=== PATIENT | female | born 1970 | race Hispanic/Latino ===

== ENCOUNTER 2019-12-27 20:45 | Emergency (ER) | payer OTHER, BC, SELFPAY ==
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
[2019-12-27 20:56] VITALS: BP 156/98; PULSE 78; RESP 16; TEMP 37.5; O2SAT 100
[2019-12-27 21:29] VITALS: BP 142/64; PULSE 80; RESP 20; O2SAT 100
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
[2019-12-27] MEDS: methocarbamoL 750 MG TABLET PO (23:45)
[2019-12-27] MEDS: KETOROLAC (*BKC) 60 MG/2 ML VIAL IM (23:45)
== END 2019-12-28 00:55 | disposition home or self-care (01) ==
PROVIDERS: Emergency Provider Emergency Medicine
DX: S16.1XXA Strain of muscle, fascia and tendon at neck level, initial encounter (principal); S39.012A Strain of muscle, fascia and tendon of lower back, initial encounter; S29.012A Strain of muscle and tendon of back wall of thorax, initial encounter; E11.9 Type 2 diabetes mellitus without complications; I10 Essential (primary) hypertension; Z85.3 Personal history of malignant neoplasm of breast; Z90.10 Acquired absence of unspecified breast and nipple; V43.62XA Car passenger injured in collision with other type car in traffic accident, initial encounter
CPT/HCPCS: 72125; 72128; 72131; 96372; 99284; A9270; J1885; L0140

== ENCOUNTER 2022-11-08 13:21 | Inpatient (IN) | payer BC, SELFPAY ==
[2022-11-08] VITALS (32 sets, daily range): BP systolic 106–142; BP diastolic 32–51; PULSE 39–91; RESP 14–28; TEMP 36.3–36.9; O2SAT 90–100; BMI 29.9
--- NOTE | ~2022-11-08 | NM_ITS ---
EXAMINATION: NM stress w perf spect multi DATE: 11/11/2022 09:20 INDICATION: Abnormal electrocardiogram. Ischemic changes on electrocardiogram. Bradycardia. TECHNIQUE: Rest images were obtained following intravenous administration of 10.6 mCi Tc99m tetrofosm in (Myoview). Data was reconstructed into short axis and horizontal and vertical long axis SPECT imag es. Gated SPECT images were also obtained. The exam was ended after the rest imaging by the cardiolog ist. COMPARISON: None. FINDINGS: There is no perfusion defect in the left ventricle to suggest infarct. IMPRESSION: 1. No perfusion defect in the left ventricle to suggest infarct. 2. The exam was ended after the rest imaging by the tree and shrub worker. No stress imaging was performed. Reviewed, dictated and finalized at location A. OR WEB ARCHITECT IMPRESSION: 1. No perfusion defect in the left ventricle to suggest infarct. 2. The exam was ended after the rest imaging by the tree and shrub worker. No stress kaycee ging was performed.
--- NOTE | ~2022-11-08 | XR_ITS ---
EXAMINATION: XR chest 1V portable DATE: 11/09/2022 10:17 INDICATION: Central line placement. TECHNIQUE: A single frontal view of the chest was obtained. COMPARISON: Chest single view 11/08/2022 FINDINGS: There is mild atelectasis in the lower lung zones. No pleural effusion or pneumothorax. The heart size is normal. A right upper extremity peripherally inserted central venous catheter (PICC) i s seen with tip in the superior vena cava. There are surgical clips overlying the breasts. IMPRESSION: 1. PICC tip in superior vena cava. 2. Mild atelectasis in the lower lung zones. Reviewed, dictated and finalized at location A. PPER MACHINE OPERATOR
--- NOTE | ~2022-11-08 | XR_ITS ---
EXAMINATION: XR chest 1V portable Exam Date/Time: 11/08/2022 16:58 VIDEO SYSTEMS ENGINEER HISTORY: sob, vomiting, heart palpitations since thursday Comparison: None available. RESULT: Lines, tubes, and devices: None. Lungs and pleura: Nodular opacity in the retrocardiac lung. Streaky bibasilar opacities. Cardiomediastinal silhouette: Unremarkable. Other: No acute osseous or upper abdominal finding. IMPRESSION: Pulmonary nodule versus artifact. Presumed bibasilar atelectasis. Recommend PA and lateral views of t he chest if the patient is capable. Reviewed, dictated and finalized at location K. O SYSTEMS ENGINEER IMPRESSION: Pulmonary nodule versus artifact. Presumed bibasilar atelectasis. Recommend PA and lateral views of the chest if the patient is capable.
--- NOTE | 2022-11-08 13:37 | ECG_ITS ---
Measurements Intervals [place] Rate: 59 P: CO: 0 QRS: 51 QRSD: 102 T: 9 QT: 399 QTc: 397 Interpretive Statements JUNCTIONAL BRADYCARDIA ST DEVIATION AND MODERATE T-WAVE ABNORMALITY, CONSIDER INFERIOR AND LATERAL ISCHEMIA [-0.1+ mV T WAVE IN I/aVL/V5/V6] NO PREVIOUS ECG AVAILABLE FOR COMPARISON Electronically Signed On 11-09-2022 8:22:15 SINGLE STROKE PREFORMER by Ananda Villela M.D.
[2022-11-08 13:52] LABS: Basophils Absolute Auto 0.1 K/mm3 (0.0-0.1); Basophils Percent Auto 0.4 % (0.2-1.2); Eosinophils Absolute Auto 0.1 K/mm3 (0-0.3); Eosinophils Percent Auto 0.3 % (0-4.4); Hematocrit 40.6 % (37.0-47.0); Hemoglobin 13.6 g/dL (12.0-15.0); Immature Granulocyte Absolute 0.09 K/mm3 (0.00-0.031); Immature Granulocyte Percent A 0.6 % (0-0.5); Lymphocytes Absolute Auto 1.43 K/mm3 (0.9-3.2); Lymphocytes Percent Auto 9.6 % (18.3-44.2); Mean Corpuscular HGB Conc 33.5 g/dl (32-36); Mean Corpuscular Hemoglobin 28.8 pg (26-34); Mean Corpuscular Volume 85.8 fl (80-100); Mean Platelet Volume 10.1 fl (7.4-10.4); Monocytes Absolute Auto 0.4 K/mm3 (0.1-0.6); Monocytes Percent Auto 2.8 % (2.6-8.5); Neutrophils Absolute Auto 12.9 K/mm3 (1.3-6.7); Neutrophils Percent Auto 86.3 % (45.5-73.1); Platelet Count Result 236 k/mm3 (150-375); Red Blood Count 4.73 M/mm3 (4.2-5.4); White Blood Count 14.9 K/mm3 (4.5-10.0)
[2022-11-08 14:04] LABS: Add Urine Microscopic? YES; Appearance Urine Clear (Clear); Bilirubin Urine 1+ (Negative); Blood Urine Negative (Negative); Color Urine Yellow (Yellow); Glucose Urine UA 2+ mg/dL (Negative); Ketones Urine Trace mg/dL (Negative); Leukocyte Esterase Ur Negative LEU/UL (Negative); Nitrate Urine Negative (Negative); Protein Urine 2+ mg/dL (Negative); Specific Grav Ur 1.025 (1.001-1.035)
[2022-11-08 14:09] LABS: Alanine Aminotransferase 76 U/L (6-35); Albumin Level 5.1 g/dL (3.5-5.1); Alkaline Phosphatase 161 U/L (38-126); Anion Gap 13 mmol/L (8-16); Aspartate Amino Transferase 69 U/L (14-36); Bilirubin,Total 1.3 mg/dL (0.2-1.3); Blood Urea Nitrogen 18 mg/dL (7-17); Carbon Dioxide 23 mmol/L (22-30); Chloride 102 mmol/L (98-107); Estimated CRCL calculation 101 ml/min; Estimated Glomerular Filt Rate > 60; Glucose 304 mg/dL (65-110); Lipase 110 U/L (23-300); Potassium 4.6 mmol/L (3.4-5.0); Sodium 138 mmol/L (137-145)
[2022-11-08 14:23] LABS: Mucus Urine Rare /lpf; RBC Urine 0-2 /hpf (0-2); Squamous Epithelial Cell Urine Few /hpf (Few); WBC Urine 0-3 /hpf
--- NOTE | 2022-11-08 14:25 | PC.NURSE ---
notified lab of tropin level added on
--- NOTE | 2022-11-08 14:28 | ED.GENADULT ---
HPI - General Adult General Chief complaint: Nausea/Vomiting/Diarrhea Stated complaint: vomiting Time Seen by Provider: 11/08/22 14:01 History of Present Illness HPI narrative: 52-year-old female history of hypertension diabetes breast cancer presents to the emergency room for sudden onset of substernal chest pain and palpitations since this morning when she woke up. States that chest pain has been constant and does not radiate. Associated with nausea and vomiting. States pain is not alleviated or aggravated by any factors. Patient denies any associated shortness of breath difficulty breathing. Denies dizziness or lightheadedness. Reports, feeling my heart is going to pound out of my chest. No history of similar symptoms. Related Data Allergies Allergy/AdvReac Type Severity Reaction Status Date / Time No Known Allergies Allergy Verified 11/08/22 14:48 Review of Systems Review of Systems: CONSTITUTIONAL: Denies fever, chills, or sweats. EYES: Denies visual changes, redness, or discharge. ENT: Denies rhinorrhea, congestion, sore throat, or otalgia. CARDIOVASCULAR: Reports chest pain and palpitations RESPIRATORY: Denies cough or dyspnea. GASTROINTESTINAL: Denies abdominal pain, nausea, vomiting, or diarrhea. GENITOURINARY: Denies dysuria or hematuria. SKIN: Denies rash or itching. MUSCULOSKELETAL: Denies back pain, joint pain, or myalgia. NEUROLOGIC: Denies headache, numbness, dizziness, or weakness. PSYCHIATRIC: Denies anxiety or depression. Exam Narrative: GENERAL: Well-appearing, well-nourished, no physical limitations, and in no acute distress. HEAD: Normocephalic, atraumatic. EYES: Conjunctivae normal, PERRLA and EOMI. NECK: Supple. CHEST: Clear to auscultation. No respiratory distress. No wheezes rales or rhonchi. HEART: Bradycardic regular rhythm. No murmur heard. Normal peripheral pulses. ABDOMEN: Soft, nontender, nondistended, normal active bowel sounds. EXTREMITIES: Normal range of motion. No edema. No clubbing or cyanosis SKIN: Warm, dry, no rash. No noted wounds NEURO: No focal deficits. Alert and oriented x3. MAEW. CN's II-XI intact bilaterally, normal gait PSYCH: Cooperative. Anxious Course Course Emergency Course: 1529: Consulted with Dr. Villela. He recommends patient being admitted to the IMU. Vital Signs Vital signs: Vital Signs Temperature 36.4 C L 11/08/22 13:34 Pulse Rate 51 L 11/08/22 13:34 Respiratory Rate 18 11/08/22 13:34 Blood Pressure 138/43 L 11/08/22 13:34 Pulse Oximetry 100 11/08/22 13:34 Oxygen Delivery Room Air 11/08/22 13:34 Temperature 36.7 C 11/08/22 14:23 Pulse Rate 50 L 11/08/22 16:05 Respiratory Rate 16 11/08/22 15:38 Blood Pressure 106/32 L 11/08/22 16:05 Pulse Oximetry 95 11/08/22 15:38 Oxygen Delivery Nasal Cannula 11/08/22 14:30 Oxygen Flow Rate 2 11/08/22 14:30 Medical Decision Making MDM Narrative Medical decision making narrative: 52-year-old female history of hypertension dyslipidemia and breast cancer presented to the emergency room for evaluation of chest pain and palpitations. EKG shows ST deviation and moderate T wave abnormality, with bradycardia and the rate 30 to 40 bpm. There is some ST depression in the lateral and inferior leads. Single troponin was negative, delta troponin is pending. Presentation is not consistent with acute PE the D-dimer was negative well score was 0. Will admit patient due to symptomatic bradycardia. 0.4 mg of atropine was given. Blood pressures remained stable 120/60, patient was alert and oriented x3. Consulted with cardiology. Patient will be admitted to the IMU Vital Signs Vital Signs: Vital Signs Temperature 36.4 C L 11/08/22 13:34 Pulse Rate 51 L 11/08/22 13:34 Respiratory Rate 18 11/08/22 13:34 Blood Pressure 138/43 L 11/08/22 13:34 Pulse Oximetry 100 11/08/22 13:34 Oxygen Delivery Room Air 11/08/22 13:34 Temperature 36.7 C 11/08/22 14:23 Pul
[2022-11-08] MEDS: SODIUM CHLORIDE 0.9% IV 1,000 ML 999 ML IV CONT (14:45)
[2022-11-08] MEDS: ONDANSETRON INJ 4 MG/2 ML VIAL IV PUSH ×3 (14:46→23:02)
[2022-11-08 14:47] LABS: Troponin I < 0.012 ng/mL (0.000-0.034)
[2022-11-08 15:00] LABS: D Dimer 0.33 ug/mL (<0.48)
[2022-11-08] MEDS: ATROPINE SULFATE 1 MG/ML VIAL 0.4 MG IV PUSH (15:27)
--- NOTE | 2022-11-08 15:37 | PC.NURSE ---
patient received 0.4mg atropine for HR in 30s.
[2022-11-08 16:18] LABS: Influenza A QL RT-PCR Negative (Negative); Influenza B QL RT-PCR Negative (Negative); SARS-CoV-2 RNA PCR Negative
--- NOTE | 2022-11-08 16:33 | PC.NURSE ---
reg diet food tray ordered
--- NOTE | 2022-11-08 16:43 | PC.NURSE ---
Addendum entered by Izzy Enriquez RN 11/08/22 16:46: correction: patient c/o teeth and gum pain. denies jaw pain at this time Original Note: patient c/o teeth and jaw pain at this time. Provider aware.
[2022-11-08 17:16] LABS: Troponin I < 0.012 ng/mL (0.000-0.034)
--- NOTE | 2022-11-08 17:24 | PM.IMHP ---
H&P: HPI History of Present Illness Date/Time: 11/08/22 17:24 Chief Complaint: Nausea vomiting diarrhea Narrative: This is a 52-year-old female patient who stated that she felt horrible this morning. She has a history of hypertension and breast cancer. The patient came to the emergency room with some substernal chest pain and palpitations since this morning when she woke up. The chest pain was constant and but did not radiate. She also had nausea and vomiting. She felt like her heart was going to lb out of her chest. Her EKG was showing supraventricular bradycardia ST deviation and moderate T-wave abnormality. Consider lateral ischemia. No previous EKG to compare with. Chest x-ray was read as pulmonary nodule versus artifact presume bibasilar atelectasis recommend PA and lateral views of the chest if patient is capable. Patient's heart rate would drop down in the 40s and 50s and sometimes in the 30s. Patient was awake and talking to me at the time. She stated that she was feeling so much better. The patient was given IV fluids, Zofran and atropine in the emergency room. Once the patient was received in IMU she was complaining of dizziness so I gave her another atropine. Cardiology has been consulted. She is on a beta-yuliya. The patient was initially admitted to inpatient and then changed to observation. Review of Systems Review of Systems: See HPI All systems reviewed & are unremarkable except as noted in HPI and below Constitutional: Constitutional: Reports as per HPI and Reports no additional constitutional complaints Eyes: Eyes: Reports as per HPI and Reports no additional eye complaints ENT: Reports system reviewed and no additional complaints, except as documented and Reports Normal hearing present Cardiovascular: Cardiovascular: Reports no additional cardiovascular complaints Respiratory: Respiratory: Reports no additional respiratory complaints and Reports no additional respiratory complaints Gastrointestinal: Gastrointestinal: Reports as per HPI and Reports no additional gastrointestinal complaints Musculoskeletal: Musculoskeletal: Reports no additional musculoskeletal complaints Integumentary/Breasts: Skin/Breast: Reports system reviewed and no additional complaints, except as docu and Reports as per HPI Neurologic: Reports system reviewed and no additional complaints, except as documented, Reports as per HPI and Reports Normal hearing present Psychiatric: Psychiatric: Reports no additional psychiatric complaints and Reports as per HPI Endocrine: Endocrine: Reports no additional endocrine complaints Hematologic/Lymphatic: Hematologic/Lymphatic: Reports no additional hematologic/lymphatic complaints Allergic/Immunologic: Allergic/Immunologic: Reports no additional allergic/immunologic complaints [facility] Past Medical History Medical History (Updated 11/08/22 @ 19:21 by Micaela Amato NP) DM2 (diabetes mellitus, type 2) History of breast cancer HTN (hypertension) with goal to be determined Hyperlipidemia Surgical History Surgical History H/O section H/O hernia repair H/O lumpectomy Hx laparoscopic cholecystectomy Family History Family History Father Hypertension Mother Diabetes mellitus Hypertension Sibling Diabetes mellitus Hypertension Breast cancer Grandparent Breast cancer Social History Social History (Updated 11/08/22 @ 19:15 by Micaela Amato NP) Social History: She lives with her and has 2 children. 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 She is a former smoker. She does not use any alcohol marijuana or illicit drugs. Her is a durable power state attorney for healthcare. Code status full code Smoking status: Former smoker Alcohol intake: current Drinks per week: 1 Substance use: never Lack of Transportation: No Lack of Food: Never True Cu
[2022-11-08 18:04] LABS: Glucose Point of Care 288 mg/dl (65-105)
--- NOTE | 2022-11-08 18:09 | ADMGEN ---
This patient, Daniela Cline, was admitted to IMU Room 202- at 1754. Patient/family oriented to hospital policies and general routines including ID bracelet, bed and alarms, visiting hours, pain management, procedures, bathroom and other care routines, personal items, smoking policy, room service/diet, and visiting hours. Information on how to activate the Rapid Response Team has been discussed. Patient/Family are encouraged to report perceived risks to care and to ask questions if they do not understand what they are told or what they should do.
[2022-11-08] MEDS: SODIUM CHLORIDE 0.9% IV 1,000 ML 125 ML IV CONT (18:38)
[2022-11-08] MEDS: DOPamine 400 MG/D5W 250 ML 400 MG/250 ML BAG 7.88 MG IV CONT (19:30)
--- NOTE | 2022-11-08 19:41 | PC.NURSE ---
After arriving to the floor and being hooked up to our telemetry machine, the patient's heart rate was noted to be in the 40s and 50s. The patient verbalized that she felt better since she got medication in the ER. This RN began the admission process with the patient's in attendance, but I asked the community relations manager to notify me if the patient's heart rate dropped any further. A short time later, the patient began complaining of nausea. An emesis bag was retrieved and zofran IV was given. The patient verbalized that she was feeling slightly better. We continued briefly with the admission and the patient began complaining of nausea and lightheadedness. At this time the community relations manager notified me the patient had momentarily dropped her heart rate into the 30s. This RN notified the hospitalist, and alerted floor RNs and food products sales representative of situation that was evolving that requires urgent attention. Micaela Amato PASTEURIZING SUPERVISOR ordered another ampule of Atropine, which was given. Patient then verbalized relief from symptoms. In the subsequent hour Micaela has been in regular communication with the nursing staff and Dr. Villela was notified. A dopamine drip has been started at 2.5mcg/kg/hr and patient has pacing pads in place. Oncoming RN updated on condition and floor staff alerted to evolving situation.
[2022-11-08 19:45] LABS: Hemoglobin A1C 7.3 % (<5.7)
[2022-11-08 20:35] LABS: Glucose Point of Care 252 mg/dl (65-105)
[2022-11-08] MEDS: INSULIN GLARGINE (*BKC) 100 UNITS/ML 65 UNITS SUB-Q (20:39)
[2022-11-08 22:26] LABS: Troponin I < 0.012 ng/mL (0.000-0.034)
[2022-11-09] VITALS (13 sets, daily range): BP systolic 119–140; BP diastolic 45–60; PULSE 41–74; RESP 16–24; TEMP 36.1–36.6; O2SAT 98–100
[2022-11-09] MEDS: SODIUM CHLORIDE 0.9% IV 1,000 ML 125 ML IV CONT ×3 (02:17→20:48)
[2022-11-09] MEDS: ONDANSETRON INJ 4 MG/2 ML VIAL IV PUSH ×3 (03:31→17:21)
[2022-11-09 04:48] LABS: Basophils Percent Auto 0.3 % (0.2-1.2); Eosinophils Percent Auto 0.1 % (0-4.4); Hematocrit 36.4 % (37.0-47.0); Hemoglobin 12.3 g/dL (12.0-15.0); Immature Granulocyte Absolute 0.06 K/mm3 (0.00-0.031); Immature Granulocyte Percent A 0.5 % (0-0.5); Lymphocytes Absolute Auto 1.55 K/mm3 (0.9-3.2); Lymphocytes Percent Auto 13.4 % (18.3-44.2); Mean Corpuscular HGB Conc 33.8 g/dl (32-36); Mean Corpuscular Hemoglobin 28.7 pg (26-34); Mean Platelet Volume 10.5 fl (7.4-10.4); Monocytes Absolute Auto 0.6 K/mm3 (0.1-0.6); Monocytes Percent Auto 4.9 % (2.6-8.5); Neutrophils Absolute Auto 9.3 K/mm3 (1.3-6.7); Neutrophils Percent Auto 80.8 % (45.5-73.1); Platelet Count Result 204 k/mm3 (150-375); Red Blood Count 4.28 M/mm3 (4.2-5.4); Red Cell Distribution Width 13.2 % (11.5-14.5); White Blood Count 11.5 K/mm3 (4.5-10.0)
[2022-11-09 04:59] LABS: Lactic Acid Reflex 1.7 mmol/L (0.7-2.0)
[2022-11-09 05:08] LABS: Alanine Aminotransferase 60 U/L (6-35); Albumin Level 4.6 g/dL (3.5-5.1); Alkaline Phosphatase 110 U/L (38-126); Anion Gap 9 mmol/L (8-16); Aspartate Amino Transferase 38 U/L (14-36); Blood Urea Nitrogen 15 mg/dL (7-17); Calcium 9.1 mg/dL (8.4-10.2); Carbon Dioxide 26 mmol/L (22-30); Chloride 104 mmol/L (98-107); Estimated CRCL calculation 102 ml/min; Estimated Glomerular Filt Rate > 60; Glucose 211 mg/dL (65-110); Potassium 3.7 mmol/L (3.4-5.0); Sodium 139 mmol/L (137-145)
[2022-11-09 05:50] LABS: Thyroid Stimulating Hormone Reflex 0.316 uIU/mL (0.465-4.68)
[2022-11-09 06:22] LABS: Free T4 Free Thyroxine Reflex 1.03 ng/dL (0.78-2.19)
[2022-11-09 08:22] LABS: Glucose Point of Care 182 mg/dl (65-105)
[2022-11-09] MEDS: LETROZOLE (*CHEMO) 2.5 MG TABLET PO (08:31)
[2022-11-09] MEDS: glipiZIDE 5 MG TABLET 10 MG PO ×2 (08:31→17:21)
[2022-11-09] MEDS: ENOXAPARIN 40 MG/0.4 ML SYRINGE SUB-Q (10:52)
[2022-11-09] MEDS: MORPHINE SULFATE (*CRX) 2 MG/ML INJ IV PUSH (10:52)
[2022-11-09 12:25] LABS: Total Triiodothyronine (T3) 1.03 NG/ML (0.97-1.69)
[2022-11-09 12:28] LABS: Glucose Point of Care 171 mg/dl (65-105)
--- NOTE | 2022-11-09 12:28 | ECG_ITS ---
Measurements Intervals [place] Rate: 68 P: 57 CO: 179 QRS: 8 QRSD: 110 T: 31 QT: 363 QTc: 388 Interpretive Statements SINUS RHYTHM NONSPECIFIC ST & T-WAVE ABNORMALITY COMPARED TO ECG 11/08/2022 13:40:55 SINUS RHYTHM REPLACES JUNCTIONAL RHYTHM Electronically Signed On 11-10-2022 6:17:38 MANAGER IN HOME by Ananda Villela M.D.
--- NOTE | 2022-11-09 12:51 | PM.CNCAR ---
Assessment and Plan Assessment and plan (1) Junctional escape rhythm: Code(s): I49.49 - Other premature depolarization Status: Acute Plan This is a 52-year-old female with a background of hypertension and diabetes. She presents to the hospital with a history that is somewhat unusual she describes episodes of feeling very weak and the sense of tachycardia. Specifically no significant chest pain. Her presenting EKG did not demonstrate tachycardia but rather slow junctional bradycardia and now she is in sinus rhythm. When she was in the slow junctional rhythm she also had a somewhat ischemic looking electrocardiogram with ST segment depression. There has not been a follow-up ECG collected and I ordered 1 for today. She also on physical exam has a murmur of aortic valve stenosis which at least by physical and the exam does not sound severe to me. Obviously he she has risk for ischemic heart disease given diabetes and hypertension. I am going to start out by ordering an echocardiogram to fully evaluate her aortic valve pathology. After that we will determine further course of action she will need an ischemic evaluation whether that is invasive or noninvasive remains to be seen. She does not have any exertional symptoms typical of angina but obviously she has significant coronary risk factor. Will follow with you and leave further recommendations after echocardiogram has been reviewed. Ananda Villela MD [facility] History of Present Illness History of Present Illness Consult date/time: 11/09/22 12:51 Reason For Visit: chest pain Narrative: This is a 52-year-old woman I am seeing at the request of the hospitalist today for assistance with the evaluation and management of problematic Uday arrhythmias which were noted yesterday upon emergency room evaluation. The patient is unknown to me prior to this and does speak some Montserratian but is somewhat difficult historian because of being primarily a Yi speaker. In any event she states that she came to the hospital yesterday because of the sensation of feeling suddenly very poorly and weak and the sense that her heart was racing. She says that she has hypertension for many years and at times she will feel her heart pounding she thinks it is because her blood pressure is elevated. She has never had a syncopal episode. She had also carries the diagnosis of diabetes and is managed with insulin and metformin. She reports no prior history of cardiac problems otherwise. When she was having these symptoms she wanted her to bring her to the hospital. When she came to the hospital she was actually bradycardic and I was informed of this and to she was admitted to the hospital. She was given some atropine in the emergency room she received another dose of atropine on the floor last night when she was once again bradycardic and symptomatic with that. She was then placed on a low dose of dopamine at 2.5 mg and since then her cardiac rhythm has been better. She is currently in a sinus rhythm with a heart rate in the 60s and 70s. She says that she feels better. Her troponins were checked on admission x3 sets and they are normal. Her presenting electrocardiogram I saw this morning and actually shows a junctional rhythm with no sinus P waves and significant inferolateral ST segment depression. A subsequent EKG has not been performed. She says that apart from this she is a physically active lady she does not exercise regularly at a gym but she does go for walks for fitness and does not experience symptoms of any kind of chest discomfort or dyspnea when she walks for about half an hour for exercise. Review of Systems Constitutional: Constitutional: Reports lethargy Eyes: Eyes: Reports no additional eye complaints ENT: Reports system reviewed and no additional complaints, except as documented Cardiovascular: Cardiovascular: Reports as per HPI Respiratory: Respiratory: R
--- NOTE | 2022-11-09 15:02 | PM.IMPN ---
Progress Note: A&P Assessment and Plan (1) Symptomatic bradycardia: Code(s): R00.1 - Bradycardia, unspecified Status: Acute Assessment and Plan: -the patient was given 3 doses of atropine -I am going to hold her beta-yuliya. She is on metoprolol. -cardiology has been consulted. -may consider glucagon since she is on a beta-yuliya. -continue with IV fluids -start dopamine drip -check thyroid level 11/09/2022 interval history: [age] year female with history of hypertension and diabetes presented emergency department with complaint atypical chest pain with nausea and vomiting, EKG concerning for bradycardia, patient seen by Cardiology to further evaluate patient will have cardiac echo and further recommendation to follow, patient TSH is low however patient's total T3 and free T4 a close to normal suggesting patient may have a subacute thyroiditis under stress. will monitor (2) Hyperlipidemia: Code(s): E78.5 - Hyperlipidemia, unspecified Status: Acute Assessment and Plan: Continue with pravastatin -check liver enzyme (3) HTN (hypertension) with goal to be determined: Code(s): I10 - Essential (primary) hypertension Status: Acute Assessment and Plan: -hold losartan-hydrochlorothiazide and metoprolol (4) DM2 (diabetes mellitus, type 2): Code(s): E11.9 - Type 2 diabetes mellitus without complications Status: Acute Assessment and Plan: -hold metformin lax line-continue glipizide -sliding scale insulin with Accu-Cheks AC and HS and hypoglycemic protocol. -continue with long-acting insulin (5) Chest pain: Code(s): R07.9 - Chest pain, unspecified Status: Acute Assessment and Plan: -the 1st 2 troponins were negative. -continue to trend. -cardiology is already been consulted for the bradycardia (6) History of breast cancer: Code(s): Z85.3 - Personal history of malignant neoplasm of breast Status: Acute Assessment and Plan: -continue with letrozole. Subjective Date/time seen: 11/09/22 15:02 Nausea vomiting diarrhea HPI-Narrative: This is a 52-year-old female patient who stated that she felt horrible this morning.? She has a history of hypertension and breast cancer.? The patient came to the emergency room with some substernal chest pain and palpitations since this morning when she woke up.? The chest pain was constant and but did not radiate.? She also had nausea and vomiting.? She felt like her heart was going to lb out of her chest.? Her EKG was showing supraventricular bradycardia ST deviation and moderate T-wave abnormality.? Consider lateral ischemia.? No previous EKG to compare with.? Chest x-ray was read as pulmonary nodule versus artifact presume bibasilar atelectasis recommend PA and lateral views of the chest if patient is capable.? Patient's heart rate would drop down in the 40s and 50s and sometimes in the 30s.? Patient was awake and talking to me at the time.? She stated that she was feeling so much better.? The patient was given IV fluids, Zofran and atropine in the emergency room.? Once the patient was received in IMU she was complaining of dizziness so I gave her another atropine.? Cardiology has been consulted.? She is on a beta-yuliya.? The patient was initially admitted to inpatient and then changed to observation. 11/09/2022 interval history: [age] year female with history of hypertension and diabetes presented emergency department with complaint atypical chest pain with nausea and vomiting, EKG concerning for bradycardia, patient seen by Cardiology to further evaluate patient will have cardiac echo and further recommendation to follow, patient TSH is low however patient's total T3 and free T4 a close to normal suggesting patient may have a subacute thyroiditis under stress. will monitor Review of Systems Review of Systems: All systems reviewed & are unremarkable except as noted in H
[2022-11-09 18:53] LABS: Glucose Point of Care 138 mg/dl (65-105)
[2022-11-09 20:40] LABS: Glucose Point of Care 225 mg/dl (65-105)
[2022-11-09] MEDS: PRAVASTATIN SODIUM 10 MG TABLET PO (20:44)
[2022-11-09] MEDS: INSULIN GLARGINE (*BKC) 100 UNITS/ML 65 UNITS SUB-Q (20:44)
[2022-11-10] VITALS (16 sets, daily range): BP systolic 129–149; BP diastolic 56–71; PULSE 65–86; RESP 18–20; TEMP 36.2–36.6; O2SAT 99–100
[2022-11-10] MEDS: SODIUM CHLORIDE 0.9% IV 1,000 ML 125 ML IV CONT ×3 (02:55→20:32)
[2022-11-10] MEDS: DOPamine 400 MG/D5W 250 ML 400 MG/250 ML BAG 7.88 MG IV CONT (02:56)
--- NOTE | 2022-11-10 06:00 | ECHO_ITS ---
Patient Info Name: Daniela Cline Age: 52 years : 1970 Gender: Female Ht: 66 in Wt: 185 lbs BSA: 2.00 m2 HR: 65 bpm BP: 149 / 69 mmHg Heart Rhythm: Sinus Rhythm Technical Quality: Good Exam Date: 11/10/2022 7:54 AM Exam Location: [facility] Patient Status: Inpatient Admit Date: 11/08/2022 Staff Ordering Physician: Evangelist Del Cid APRN Conditioner Tumbler: Mignon Flores RDCS Attending Provider: Troy Cortes MD Referring Physician: Nehemias HERNANDEZ; Exam Type: CA echo doppler color flow Study Info Indications R00.1 - Bradycardia, unspecified Complete two-dimensional, color flow and Doppler transthoracic echocardiogram is performed. Summary 1. Complete two-dimensional, color flow and Doppler transthoracic echocardiogram is performed. 2. Mild concentric LVH with normal size and normal systolic function no ischemic wall motion abnormalities. 3. Large left atrium. 4. Grade 1 diastolic noncompliance. 5. Normal aortic valve. Left Ventricle Left ventricular chamber dimension is normal. Left ventricular systolic function is normal, estimated at 60-65%. There is mild concentric increased left ventricular wall thickness. The left ventricular diastolic function is grade I diastolic dysfunction. Right Ventricle Right ventricular chamber dimension is normal. Left Atria Left atrial chamber dimension is mildly enlarged. Right Atria Right atrial chamber dimension is normal. Aortic Valve The aortic valve is normal. Pulmonic Valve The pulmonic valve is normal. Mitral Valve The mitral valve has normal leaflets. Tricuspid Valve The tricuspid valve leaflets are normal. Pericardium/Pleural The pericardium appears normal. Aorta The aortic root size at the sinus of Valsalva is normal. Left Ventricular Outflow Tract Name Value Normal LVOT 2D LVOT Diameter 2.0 cm LVOT Doppler LVOT Peak Gradient 4 mmHg LVOT Mean Gradient 2 mmHg LVOT VTI 20 cm LVOT VTI/AV VTI Ratio 0.5 LVOT Stroke Volume 66 ml LVOT CO 4.2 l/min LVOT CI 2.1 l/min/m2 Pulmonic Valve Name Value Normal RVOT Doppler RVOT Peak Gradient 3 mmHg PV Doppler PV Peak Gradient 9 mmHg Mitral Valve Name Value Normal MV Doppler MV Decel Buchanan 391 cm/s2 MV PHT
[2022-11-10 07:58] LABS: Glucose Point of Care 146 mg/dl (65-105)
[2022-11-10] MEDS: glipiZIDE 5 MG TABLET 10 MG PO ×2 (08:53→17:30)
[2022-11-10] MEDS: ENOXAPARIN 40 MG/0.4 ML SYRINGE SUB-Q (08:53)
[2022-11-10 11:45] LABS: Glucose Point of Care 237 mg/dl (65-105)
--- NOTE | 2022-11-10 15:42 | PM.PNCARD ---
Progress Note: A&P Assessment and Plan (1) Junctional escape rhythm: Code(s): I49.49 - Other premature depolarization Status: Acute Assessment and Plan: Initial EKG showing junctional bradycardia. She also had some ST segment depression. She has been placed on a dopamine drip in is now in sinus rhythm. Echocardiogram was performed and revealed normal systolic function with no ischemic wall motion abnormalities. Her left atrium is enlarged. Grade 1 diastolic dysfunction. No valve pathology. Noninvasive ischemic evaluation tomorrow with an exercise nuclear stress test Continue dopamine for now Subjective Date/time seen: 11/10/22 15:42 cardiology follow-up for bradycardia Interval history: She is feeling better today. She states that she has not had any more nausea or vomiting. Heart rate is improved on dopamine. Discussed the a results of her echocardiogram with her. Review of Systems Constitutional: Constitutional: Reports lethargy Eyes: Eyes: Reports no additional eye complaints ENT: Reports system reviewed and no additional complaints, except as documented Cardiovascular: Cardiovascular: Reports as per HPI Respiratory: Respiratory: Reports no additional respiratory complaints Gastrointestinal: Gastrointestinal: Reports nausea Musculoskeletal: Musculoskeletal: Reports no additional musculoskeletal complaints Integumentary/Breasts: Skin/Breast: Reports system reviewed and no additional complaints, except as docu Neurologic: Reports system reviewed and no additional complaints, except as documented Endocrine: Endocrine: Reports no additional endocrine complaints Hematologic/Lymphatic: Hematologic/Lymphatic: Reports no additional hematologic/lymphatic complaints Allergic/Immunologic: Allergic/Immunologic: Reports no additional allergic/immunologic complaints Exam Const: General: comfortable HENMT: Head: normal to inspection Mouth: Yes moist mucous membranes Eyes: Sclera: sclerae normal Pupils: Equal, round and reactive pupils present Neck: Neck: supple and no JVD Thyroid: thyroid normal Resp: Effort & Inspection: normal respiratory effort Auscultation: clear to auscultation bilaterally Cardio: Rate: regular rate Rhythm: regular rhythm Heart sounds: Murmur heart sound present systolic II/ Peripheral pulses: Peripheral pulses 2+ throughout GI: Auscultation: normal bowel sounds Skin: General skin exam: normal color Neuro: Cranial nerves: Yes Equal, round and reactive pupils present Other: Alert and oriented x3 normal cognition Extrem: General: normal to inspection Other: Good pulses throughout Objective Data Vital Signs Vital Signs: Vital Signs - 24 hr 11/09/22 16:00 11/09/22 16:00 11/09/22 16:00 Temperature 36.1 C L Pulse Rate 68 70 Respiratory Rate 16 Blood Pressure 126/45 L Pulse Oximetry 100 99 Oxygen Delivery Nasal Cannula Oxygen Flow Rate 2 11/09/22 18:00 11/09/22 20:00 11/09/22 20:00 Temperature 36.1 C L Pulse Rate 74 70 72 Respiratory Rate 18 Blood Pressure 133/53 L Pulse Oximetry 100 Oxygen Delivery Oxygen Flow Rate 11/09/22 20:00 11/09/22 22:00 11/09/22 23:58 Temperature 36.3 C L Pulse Rate 72 67 Respiratory Rate 20 Blood Pressure 122/51 L Pulse Oximetry 100 100 Oxygen Delivery Nasal Cannula Oxygen Flow Rate 2 11/10/22 00:00 11/10/22 00:00 11/10/22 02:00 Temperature Pulse Rate 67 66 Respiratory Rate Blood Pressure Pulse Oximetry 100 Oxygen Delivery Nasal Cannula Oxygen Flow Rate 2 11/10/22 04:00 11/10/22 04:00 11/10/22 04:00 Temperature 36.6 C Pulse Rate 69 69 Respiratory Rate 18 Blood Pressure 149/69 H Pulse Oximetry 100 99 Oxygen Delivery Nasal Cannula Oxygen Flow Rate 2 11/10/22 06:00 11/10/22 08:00 11/10/22 08:00 Temperature 36.3 C L Pulse Rate 65 76 Respiratory Rate 20 Blood Pressure 136/60 Pulse Oximetry 99 Oxygen Del
--- NOTE | 2022-11-10 17:03 | PM.IMPN ---
Progress Note: A&P Assessment and Plan (1) Symptomatic bradycardia: Code(s): R00.1 - Bradycardia, unspecified Status: Acute Assessment and Plan: -the patient was given 3 doses of atropine -I am going to hold her beta-yuliya. She is on metoprolol. -cardiology has been consulted. -may consider glucagon since she is on a beta-yuliya. -continue with IV fluids -start dopamine drip -check thyroid level 11/10/2022 interval history: [age] year female with history of hypertension and diabetes presented emergency department with complaint atypical chest pain with nausea and vomiting, EKG concerning for bradycardia, patient was started on Dubatamine drip and HR is stable, patient is seen by Cardiology to further evaluate patient will have cardiac echo, today patient had a cardiac echo which is essentially normal with ejection fraction of 55% and grade 1 diastolic dysfunction, cardiology recommended Lexiscan test to further evaluate do scheduled for tomorrow, and further recommendation to follow, patient TSH is low however patient's total T3 and free T4 a close to normal suggesting patient may have a subacute thyroiditis under stress. will monitor (2) Hyperlipidemia: Code(s): E78.5 - Hyperlipidemia, unspecified Status: Acute Assessment and Plan: Continue with pravastatin -check liver enzyme (3) HTN (hypertension) with goal to be determined: Code(s): I10 - Essential (primary) hypertension Status: Acute Assessment and Plan: -hold losartan-hydrochlorothiazide and metoprolol (4) DM2 (diabetes mellitus, type 2): Code(s): E11.9 - Type 2 diabetes mellitus without complications Status: Acute Assessment and Plan: -hold metformin lax line-continue glipizide -sliding scale insulin with Accu-Cheks AC and HS and hypoglycemic protocol. -continue with long-acting insulin (5) Chest pain: Code(s): R07.9 - Chest pain, unspecified Status: Acute Assessment and Plan: -the 1st 2 troponins were negative. -continue to trend. -cardiology is already been consulted for the bradycardia (6) History of breast cancer: Code(s): Z85.3 - Personal history of malignant neoplasm of breast Status: Acute Assessment and Plan: -continue with letrozole. Subjective Date/time seen: 11/10/22 17:03 11/10/2022 interval history: [age] year female with history of hypertension and diabetes presented emergency department with complaint atypical chest pain with nausea and vomiting, EKG concerning for bradycardia, patient was started on Dubatamine drip and HR is stable, patient is seen by Cardiology to further evaluate patient will have cardiac echo, today patient had a cardiac echo which is essentially normal with ejection fraction of 55% and grade 1 diastolic dysfunction, cardiology recommended Lexiscan test to further evaluate do scheduled for tomorrow, and further recommendation to follow, patient TSH is low however patient's total T3 and free T4 a close to normal suggesting patient may have a subacute thyroiditis under stress. will monitor Review of Systems Review of Systems: All systems reviewed & are unremarkable except as noted in HPI and below Exam Narrative: Patient is comfortable, NAD HEENT: eyes are clear and none icteric LUNGS: normal respiratory effort ABD: not distended Lower extremities: no edema SKIN: nonjaundiced Neuro: grossly intact. Objective Data Vital Signs Vital Signs: Vital Signs - 24 hr 11/09/22 18:00 11/09/22 20:00 11/09/22 20:00 Temperature 97.0 F L Pulse Rate 74 70 72 Respiratory Rate 18 Blood Pressure 133/53 L Pulse Oximetry 100 Oxygen Delivery Oxygen Flow Rate 11/09/22 20:00 11/09/22 22:00 11/09/22 23:58 Temperature 97.4 F L Pulse Rate 72 67 Respiratory Rate 20 Blood Pressure 122/51 L Pulse Oximetry 100 100 Oxygen Delivery Nasal Cannula Oxygen Flow Rate 2
[2022-11-10 17:05] LABS: Glucose Point of Care 137 mg/dl (65-105)
[2022-11-10 20:19] LABS: Glucose Point of Care 266 mg/dl (65-105)
[2022-11-10] MEDS: LETROZOLE (*CHEMO) 2.5 MG TABLET PO (20:33)
[2022-11-10] MEDS: PRAVASTATIN SODIUM 10 MG TABLET PO (20:33)
[2022-11-10] MEDS: INSULIN GLARGINE (*BKC) 100 UNITS/ML 65 UNITS SUB-Q (20:33)
[2022-11-10] MEDS: ONDANSETRON INJ 4 MG/2 ML VIAL IV PUSH (20:41)
[2022-11-11] VITALS (23 sets, daily range): BP systolic 104–141; BP diastolic 6–68; PULSE 62–79; RESP 12–22; TEMP 36.6–36.9; O2SAT 97–100
[2022-11-11] MEDS: SODIUM CHLORIDE 0.9% IV 1,000 ML 125 ML IV CONT ×3 (04:46→17:45)
--- NOTE | 2022-11-11 08:05 | PC.NURSE ---
Off floor to Stress test with RN at side. IV contrast given per orders. Test cancelled per [facility]. Cardiac cath scheduled per Dr. Javier.
[2022-11-11 08:24] LABS: Glucose Point of Care 133 mg/dl (65-105)
[2022-11-11 10:17] LABS: Hematocrit 33.9 % (37.0-47.0); Hemoglobin 11.9 g/dL (12.0-15.0); Mean Corpuscular HGB Conc 35.1 g/dl (32-36); Mean Corpuscular Hemoglobin 29.4 pg (26-34); Mean Corpuscular Volume 83.7 fl (80-100); Mean Platelet Volume 9.4 fl (7.4-10.4); Platelet Count Result 84 k/mm3 (150-375); Red Blood Count 4.05 M/mm3 (4.2-5.4); Red Cell Distribution Width 13.3 % (11.5-14.5); White Blood Count 7.2 K/mm3 (4.5-10.0)
[2022-11-11 10:38] LABS: Alanine Aminotransferase 59 U/L (6-35); Albumin Level 4.3 g/dL (3.5-5.1); Alkaline Phosphatase 140 U/L (38-126); Anion Gap 8 mmol/L (8-16); Aspartate Amino Transferase 46 U/L (14-36); Bilirubin,Total 1.4 mg/dL (0.2-1.3); Blood Urea Nitrogen 9 mg/dL (7-17); Calcium 8.4 mg/dL (8.4-10.2); Carbon Dioxide 28 mmol/L (22-30); Chloride 106 mmol/L (98-107); Estimated CRCL calculation 118 ml/min; Estimated Glomerular Filt Rate > 60; Glucose 144 mg/dL (65-110); Magnesium 1.9 mg/dL (1.6-2.3); Sodium 142 mmol/L (137-145)
--- NOTE | 2022-11-11 10:44 | PC.NURSE ---
Patient off floor to Cardiac cathode washer.
--- NOTE | 2022-11-11 11:42 | WPDMODSED ---
Moderate Sedation Note-Pt Data Patient Data Diagnosis: Bradycardia, ECG concerning for ischemia Present Complaint: Bradycardia, ECG concerning for ischemia Procedure to be performed/Plan: Coronary angiography Allergies Allergy/AdvReac Type Severity Reaction Status Date / Time No Known Allergies Allergy Verified 11/08/22 14:48 Home Medications Medication Instructions Recorded Confirmed Type glipizide 10 mg tablet 10 mg PO BID 11/08/22 11/08/22 History insulin detemir U-100 100 unit/mL 65 unit subcut HS 11/08/22 11/08/22 History subcutaneous solution (Levemir U-100 Insulin) letrozole 2.5 mg tablet 2.5 mg PO DAILY 11/08/22 11/08/22 History losartan 100 1 tablet PO DAILY 11/08/22 11/08/22 History mg-hydrochlorothiazide 25 mg tablet metformin 500 mg tablet,extended 500 mg PO BID 11/08/22 11/08/22 History release 24 hr metoprolol succinate 50 mg 50 mg PO DAILY 11/08/22 11/08/22 History tablet,extended release 24 hr pravastatin 10 mg tablet 10 mg PO HS 11/08/22 11/08/22 History Current Medications: Active Medications Atropine Sulfate (Atropine Sulfate 1 Mg/10 Ml Syringe) 0.4 mg IV PUSH ONCE PRN PRN Reason: Heart Rate-Low Dextrose (Dextrose 50% 25 Gm/50 Ml Syringe) 12.5 gm IV PUSH PRN PRN; Protocol PRN Reason: Hypoglycemia Enoxaparin Sodium (Enoxaparin 40 Mg/0.4 Ml Syringe) 40 mg SUB-Q DAILY [facility] Last Admin: 11/10/22 08:53 Dose: 40 mg Glipizide (Glipizide 5 Mg Tablet) 10 mg PO BID [facility] Last Admin: 11/10/22 17:30 Dose: 10 mg Glucagon (Glucagon For Inj 1 Mg Vial) 1 mg IM PRN PRN; Protocol PRN Reason: Hypoglycemia Glucose (Glucose Oral Gel 15 Gm Of Glucse In 37.5 Gm Tube) 15 gm PO PRN PRN; Protocol PRN Reason: Hypoglycemia Sodium Chloride (Normal Saline Iv) 1,000 mls @ 125 mls/hr IV CONT .Q8H [facility] Last Admin: 11/11/22 04:46 Dose: 125 mls/hr Dopamine HCl/Dextrose (Dopamine 400 Mg/D5w 250 Ml) 400 mg in 250 mls @ 7.875 mls/hr IV CONT .Q24H THU Last Admin: 11/10/22 20:34 Dose: Not Given Dextrose (Dextrose 5% 1,000 Ml) 1,000 mls @ 100 mls/hr IVPB PRN PRN; Protocol PRN Reason: Hypoglycemia Insulin Aspart (Insulin Aspart (*Bkc) 100 Units/Ml) 2 - 5 units SUB-Q TIDWM THU; Protocol Last Admin: 11/11/22 09:12 Dose: Not Given Insulin Glargine (Insulin Glargine (*Bkc) 100 Units/Ml) 65 units SUB-Q HS THU Stop: 12/08/22 20:59 Last Admin: 11/10/22 20:33 Dose: 65 units Letrozole (Letrozole (*Chemo) 2.5 Mg Tablet) 2.5 mg PO HS THU Last Admin: 11/10/22 20:33 Dose: 2.5 mg Morphine Sulfate (Morphine Sulfate (*Crx) 2 Mg/Ml Inj) 2 mg IV PUSH Q4H PRN PRN Reason: Chest Pain Last Admin: 11/09/22 10:52 Dose: 2 mg Ondansetron HCl (Ondansetron Inj 4 Mg/2 Ml Vial) 4 mg IV PUSH Q4H PRN PRN Reason: Nausea Last Admin: 11/10/22 20:41 Dose: 4 mg Perflutren Lipid Microsphere (Perflutren Lipid Microspheres 1.5 Ml Vial Diluted To 10 Ml Total Volume) 0 ml IV PUSH ONCE PRN; Protocol PRN Reason: adequate visualization Stop: 11/11/22 12:55 Pravastatin Sodium (Pravastatin Sodium 10 Mg Tablet) 10 mg PO HS THU Last Admin: 11/10/22 20:33 Dose: 10 mg Sedation/Anesthesia: No previous sedation/anesthesia problems (including family history). [facility] Past Medical History Medical History DM2 (diabetes mellitus, type 2) History of breast cancer HTN (hypertension) with goal to be determined Hyperlipidemia Surgical History Surgical History H/O section H/O hernia repair H/O lumpectomy Hx laparoscopic cholecystectomy Family History Family History Father Hypertension Mother Diabetes mellitus Hypertension Sibling Diabetes mellitus Hypertension Breast cancer Grandparent Breast cancer Social History Social History Social History: She lives with her a
--- NOTE | 2022-11-11 11:44 | P.PCNCC_ITS ---
Cardiac Cath Procedure Note Date of procedure:: 11/11/22 Performing physician:: CATHETERIZATION LABORATORY REPORT Procedure Date: 11/11/2022 [employer] Consultant: Emily Javier M.D., [facility]? Referring Physician: Emily Javier M.D. ? Anesthesia: Versed and Fentanyl were ordered and given in my presence at 11:09, procedure ended at 11:34. Supervision of nurse monitored moderate sedation with Versed and Fentanyl was provided for 25 minutes. Total of Versed 2.5mg and Fentanyl 100mcg were administered by the Substation Designer RN Margo Banegas. Pre-op Diagnosis: Junctional bradycardia with ECG concerning for ischemia Post-op Diagnosis: Non-obstructive coronary arteries Procedure(s): Coronary angiography Access Site: Right radial artery Brief History and Clinical Indications: Patient is a 52-year-old female with hypertension, diabetes, hyperlipidemia who is referred for cardiac cath for ischemic evaluation for ECG concerning for ischemic changes. All risks, benefits and alternatives to left heart catheterization with or without percutaneous coronary intervention was discussed at length with the patient. Risk of complications including but not limited to bleeding, infection, arrhythmia, stroke, worsening kidney function, blood loss, groin hematoma, limb loss, emergency coronary artery bypass grafting, and even were discussed with the patient and all questions were answered. The patient understood and wished to proceed. Time out called, patient name, date of , medical record number, allergies, procedure performed, identify [employer] Consultant, patient and staff member concurred with accurate data, procedure carried on. Findings: LEFT HEART CATHETERIZATION FINDINGS: 1. Left main: The left main coronary artery is widely patent without any significant obstructive disease. 2. Left anterior descending: The LAD and the diagonal branches have mild luminal irregularities without any significant obstructive angiographic disease. 3. Left circumflex: The left circumflex artery and the main marginal branches have mild luminal irregularities without any significant obstructive angiographic disease. The left circumflex is a co-dominant vessel. 4. Right coronary artery: The RCA has mild luminal irregularities without any significant obstructive angiographic disease. The RCA is a co-dominant vessel. Description of Procedure: Informed consent signed and placed in the chart. Patient transferred to excavation laborer room. Prepped and draped in usual sterile fashion. 2% lidocaine injected subcutaneously in right wrist area. 22-gauge venipuncture catheter used to access the right radial artery with the Seldinger technique. 6-FR slender sheath placed in right radial artery. Nitroglycerine and Verapamil were given intraarterial through the sheath. Versacore wire advanced under fluoroscopy 5F Tig 4 diagnostic catheter engaged Left Main Coronary Artery. 5F Tig 4 diagnostic catheter engaged Right Coronary Artery Multiple orthogonal angiogram obtained and reviewed Hemostasis was achieved by application of TR band. ? Assessment: Non-obstructive coronary arteries Post Operative Condition: Stable No significant blood loss Disposition: Floor Plan: The patient will be monitored in the recovery area. The above findings were discussed with the referring physician. Continue aggressive medical therapy and risk factor modification. ? Emily Javier M.D. Interventional Cardiology
--- NOTE | 2022-11-11 13:30 | PC.NURSE ---
Patient returned from finishing lab technician without issue, received report from JAKE Rush
[2022-11-11 14:57] LABS: Glucose Point of Care 101 mg/dl (65-105)
--- NOTE | 2022-11-11 15:10 | PM.PNCARD ---
Progress Note: A&P Assessment and Plan (1) Junctional escape rhythm: Code(s): I49.49 - Other premature depolarization Status: Acute Assessment and Plan: Initial EKG showing junctional bradycardia. She also had some ST segment depression. Beta yuliya has been on hold a ndshe was placed on a dopamine drip and in is now in sinus rhythm. Echocardiogram was performed and revealed normal systolic function with no ischemic wall motion abnormalities. Her left atrium is enlarged. Grade 1 diastolic dysfunction. No valve pathology. 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 Subjective Date/time seen: 11/11/22 15:10 Review of Systems Constitutional: Constitutional: Reports lethargy Eyes: Eyes: Reports no additional eye complaints ENT: Reports system reviewed and no additional complaints, except as documented Cardiovascular: Cardiovascular: Reports as per HPI Respiratory: Respiratory: Reports no additional respiratory complaints Gastrointestinal: Gastrointestinal: Reports nausea Musculoskeletal: Musculoskeletal: Reports no additional musculoskeletal complaints Integumentary/Breasts: Skin/Breast: Reports system reviewed and no additional complaints, except as docu Neurologic: Reports system reviewed and no additional complaints, except as documented Endocrine: Endocrine: Reports no additional endocrine complaints Hematologic/Lymphatic: Hematologic/Lymphatic: Reports no additional hematologic/lymphatic complaints Allergic/Immunologic: Allergic/Immunologic: Reports no additional allergic/immunologic complaints Exam Const: General: comfortable and no acute distress Other: Pleasant female appears to be her stated age visiting family she has IV dopamine running as I mentioned above otherwise relaxing in bed and does not have any active complaints HENMT: Head: normal to inspection Mouth: Yes moist mucous membranes Eyes: Sclera: sclerae normal Pupils: Equal, round and reactive pupils present Neck: Neck: supple and no JVD Thyroid: thyroid normal Resp: Effort & Inspection: normal respiratory effort Auscultation: clear to auscultation bilaterally Cardio: Rate: regular rate Rhythm: regular rhythm Heart sounds: Murmur heart sound present systolic II/ Peripheral pulses: Peripheral pulses 2+ throughout Other: The PMI is nondisplaced. She does have a grade 2/6 crescendo decrescendo murmur peaking in early to mid systole. It does radiate to the carotids bilaterally. No diastolic murmur or gallop GI: Auscultation: normal bowel sounds Skin: General skin exam: normal color Neuro: Cranial nerves: Yes Equal, round and reactive pupils present Other: Alert and oriented x3 normal cognition Extrem: General: normal to inspection Other: Good pulses throughout Objective Data Vital Signs Vital Signs: Vital Signs - 24 hr 11/10/22 16:00 11/10/22 16:00 11/10/22 16:00 Temperature 36.3 C L Pulse Rate 71 70 Pulse Rate [Right Radial Palpation] Respiratory Rate 18 Blood Pressure 129/71 Pulse Oximetry 100 Oxygen Delivery Room Air Oxygen Flow Rate 11/10/22 18:00 11/10/22 16:00 11/10/22 20:00 Temperature 36.4 C L Pulse Rate 82 71 71 Pulse Rate [Right Radial Palpation] Respiratory Rate 20 Blood Pressure 129/71 130/56 L Pulse Oximetry 100 Oxygen Delivery Oxygen Flow Rate 11/10/22 20:34 11/10/22 20:00 11/10/22 20:00 Temperature Pulse Rate 72 69 69 Pulse Rate [Right Radial Palpation] Respiratory Rate 20 Blood Pressure Pulse Oximetry 100 Oxygen Delivery Nasal Cannula Oxygen Flow Rate 2 11/10/22 21:34 11/10/22 23:01 11/10/22 23:21 Temperature 36.4 C L Pulse Rate 67 77 66 Pulse Rate [Right Radial Palpation] Respiratory Rate 20 Blood Pressure
[2022-11-11 16:34] LABS: Glucose Point of Care 165 mg/dl (65-105)
[2022-11-11] MEDS: glipiZIDE 5 MG TABLET 10 MG PO (17:42)
--- NOTE | 2022-11-11 17:50 | PM.IMPN ---
Progress Note: A&P Assessment and Plan (1) Symptomatic bradycardia: Code(s): R00.1 - Bradycardia, unspecified Status: Acute Assessment and Plan: -the patient was given 3 doses of atropine -I am going to hold her beta-yuliya. She is on metoprolol. -cardiology has been consulted. -may consider glucagon since she is on a beta-yuliya. -continue with IV fluids -start dopamine drip -check thyroid level 11/11/2022 interval history: [age] year female with history of hypertension and diabetes presented emergency department with complaint atypical chest pain with nausea and vomiting, EKG concerning for bradycardia, patient was started on Dubatamine drip and HR is stable, patient is seen by Cardiology to further evaluate patient will have cardiac echo, today patient had a cardiac echo which is essentially normal with ejection fraction of 55% and grade 1 diastolic dysfunction, cardiology recommended Lexiscan test to further evaluate, today patient had a Lexiscan however it was not completed patient was taken to cardiac lab asst, and had a cardiac catheterization which was essentially normal without significant coronary artery disease, will monitor patient be discharged patient home tomorrow, (2) Hyperlipidemia: Code(s): E78.5 - Hyperlipidemia, unspecified Status: Acute Assessment and Plan: Continue with pravastatin -check liver enzyme (3) HTN (hypertension) with goal to be determined: Code(s): I10 - Essential (primary) hypertension Status: Acute Assessment and Plan: -hold losartan-hydrochlorothiazide and metoprolol (4) DM2 (diabetes mellitus, type 2): Code(s): E11.9 - Type 2 diabetes mellitus without complications Status: Acute Assessment and Plan: -hold metformin lax line-continue glipizide -sliding scale insulin with Accu-Cheks AC and HS and hypoglycemic protocol. -continue with long-acting insulin (5) Chest pain: Code(s): R07.9 - Chest pain, unspecified Status: Acute Assessment and Plan: -the 1st 2 troponins were negative. -continue to trend. -cardiology is already been consulted for the bradycardia (6) History of breast cancer: Code(s): Z85.3 - Personal history of malignant neoplasm of breast Status: Acute Assessment and Plan: -continue with letrozole. Subjective Date/time seen: 11/11/22 17:50 11/11/2022 interval history: [age] year female with history of hypertension and diabetes presented emergency department with complaint atypical chest pain with nausea and vomiting, EKG concerning for bradycardia, patient was started on Dubatamine drip and HR is stable, patient is seen by Cardiology to further evaluate patient will have cardiac echo, today patient had a cardiac echo which is essentially normal with ejection fraction of 55% and grade 1 diastolic dysfunction, cardiology recommended Lexiscan test to further evaluate, today patient had a Lexiscan however it was not completed patient was taken to cardiac lab asst, and had a cardiac catheterization which was essentially normal without significant coronary artery disease, will monitor patient be discharged patient home tomorrow, Review of Systems Review of Systems: All systems reviewed & are unremarkable except as noted in HPI and below Exam Narrative: Patient is comfortable, NAD HEENT: eyes are clear and none icteric LUNGS: normal respiratory effort ABD: not distended Lower extremities: no edema SKIN: nonjaundiced Neuro: grossly intact. Objective Data Vital Signs Vital Signs: Vital Signs - 24 hr 11/10/22 18:00 11/10/22 20:00 11/10/22 20:34 Temperature 97.5 F L Pulse Rate 82 71 72 Pulse Rate [Right Radial Palpation] Respiratory Rate 20 Blood Pressure 130/56 L Pulse Oximetry 100 Oxygen Delivery Oxygen Flow Rate 11/10/22 20:00 11/10/22 20:00 11/10/22 21:34 Temperature Pulse Rate 69 69 67 Pu
[2022-11-11 20:51] LABS: Glucose Point of Care 154 mg/dl (65-105)
[2022-11-11] MEDS: INSULIN GLARGINE (*BKC) 100 UNITS/ML 65 UNITS SUB-Q (20:57)
[2022-11-11] MEDS: LETROZOLE (*CHEMO) 2.5 MG TABLET PO (20:57)
[2022-11-11] MEDS: PRAVASTATIN SODIUM 10 MG TABLET PO (20:57)
[2022-11-12] VITALS (9 sets, daily range): BP systolic 104–127; BP diastolic 44–69; PULSE 57–75; RESP 12–16; TEMP 36.5–36.8; O2SAT 99–100
[2022-11-12 07:43] LABS: Glucose Point of Care 70 mg/dl (65-105)
[2022-11-12] MEDS: ENOXAPARIN 40 MG/0.4 ML SYRINGE SUB-Q (08:26)
[2022-11-12] MEDS: ACETAMINOPHEN 325 MG TABLET 650 MG PO (08:55)
[2022-11-12] MEDS: glipiZIDE 5 MG TABLET 10 MG PO (08:59)
--- NOTE | 2022-11-12 11:30 | PM.PNCARD ---
Progress Note: A&P Assessment and Plan (1) Junctional escape rhythm: Code(s): I49.49 - Other premature depolarization Status: Acute Assessment and Plan: Initial EKG showing junctional bradycardia. She also had some ST segment depression. Beta yuliya has been on hold and she was placed on a dopamine drip and in is now in sinus rhythm. Echocardiogram was performed and revealed normal systolic function with no ischemic wall motion abnormalities. Her left atrium is enlarged. Grade 1 diastolic dysfunction. No valve pathology. [facility] did not reveal any obstructive coronary artery disease. Dopamine stopped and HR has been stable in sinus rhythm. Patient can be discharged today. Outpatient prevention rn at discharge. Already ordered. Patient can go pick it up from our clinic when she gets discharged. Subjective Date/time seen: 11/12/22 11:30 Interval history: Reason for visit: Bradycardia No acute events overnight. HR remains stable. Has not required Dopamine again. Patient feeling well this AM. Review of Systems Review of Systems: 8-point ROS obtained. Negative, unless stated in HPI. Exam Const: General: comfortable and no acute distress HENMT: Mouth: Yes moist mucous membranes Eyes: General: appearance normal, both eyes and all related structures Sclera: sclerae normal Neck: Neck: supple Resp: Effort & Inspection: normal respiratory effort Auscultation: clear to auscultation bilaterally Cardio: Rate: regular rate Rhythm: regular rhythm Heart sounds: no murmurs GI: GI Palp: Yes Soft to palpation and No Tenderness to palpation present (GI) Skin: General skin exam: normal color Neuro: Speech: normal speech Extrem: General: normal to inspection Psych: Mental Status: mental status grossly normal Affect: normal affect Objective Data Vital Signs Vital Signs: Vital Signs - 24 hr 11/11/22 12:00 11/11/22 11:35 11/11/22 12:15 Temperature Pulse Rate 69 70 69 Pulse Rate [Right Radial Palpation] Respiratory Rate 20 22 H Blood Pressure 119/67 116/66 Pulse Oximetry 97 100 Oxygen Delivery Nasal Cannula Nasal Cannula Oxygen Flow Rate 2 2 11/11/22 12:15 11/11/22 12:30 11/11/22 12:30 Temperature Pulse Rate 69 Pulse Rate [Right Radial Palpation] 69 69 Respiratory Rate 16 Blood Pressure 104/66 Pulse Oximetry 100 Oxygen Delivery Nasal Cannula Oxygen Flow Rate 2 11/11/22 12:45 11/11/22 12:45 11/11/22 13:00 Temperature Pulse Rate 70 67 Pulse Rate [Right Radial Palpation] 70 Respiratory Rate 21 H 21 H Blood Pressure 120/6 L 115/64 Pulse Oximetry 100 100 Oxygen Delivery Nasal Cannula Nasal Cannula Oxygen Flow Rate 2 2 11/11/22 13:15 11/11/22 13:30 11/11/22 13:30 Temperature Pulse Rate 64 67 Pulse Rate [Right Radial Palpation] Respiratory Rate 19 Blood Pressure 118/66 Pulse Oximetry 100 100 Oxygen Delivery Nasal Cannula Room Air Oxygen Flow Rate 2 11/11/22 14:00 11/11/22 16:00 11/11/22 16:00 Temperature Pulse Rate 72 73 Pulse Rate [Right Radial Palpation] Respiratory Rate Blood Pressure Pulse Oximetry 100 Oxygen Delivery Room Air Oxygen Flow Rate 11/11/22 16:00 11/11/22 13:45 11/11/22 14:15 Temperature 36.8 C Pulse Rate 72 62 65 Pulse Rate [Right Radial Palpation] Respiratory Rate 14 16 16 Blood Pressure 132/63 126/62 119/68 Pulse Oximetry 99 99 100 Oxygen Delivery Oxygen Flow Rate 11/11/22 15:15 11/11/22 16:15 11/11/22 18:00 Temperature Pulse Rate 66 72 69 Pulse Rate [Right Radial Palpation] Respiratory Rate 12 14 Blood Pressure 126/63 132/63 Pulse Oximetry 98 99 Oxygen Delivery Oxygen Flow Rate 11/11/22 20:00 11/11/22 20:00 11/11/22 20:00 Temperature 36.9 C Pulse Rate 70 72 72 Pulse Rate [Right Radial Palpation] Respiratory Rate 18 18 Blood Pressure 129/56 L Pulse Oximetry 98 98 Oxygen Delivery Room Air Oxygen Flow Rate
[2022-11-12 12:22] LABS: Glucose Point of Care 123 mg/dl (65-105)
--- NOTE | 2022-11-12 14:07 | PM.IMPN ---
Progress Note: A&P Assessment and Plan (1) Symptomatic bradycardia: Code(s): R00.1 - Bradycardia, unspecified Status: Acute Assessment and Plan: -the patient was given 3 doses of atropine -I am going to hold her beta-yuliya. She is on metoprolol. -cardiology has been consulted. -may consider glucagon since she is on a beta-yuliya. -continue with IV fluids -start dopamine drip -check thyroid level 11/11/2022 interval history: [age] year female with history of hypertension and diabetes presented emergency department with complaint atypical chest pain with nausea and vomiting, EKG concerning for bradycardia, patient was started on Dubatamine drip and HR is stable, patient is seen by Cardiology to further evaluate patient will have cardiac echo, today patient had a cardiac echo which is essentially normal with ejection fraction of 55% and grade 1 diastolic dysfunction, cardiology recommended Lexiscan test to further evaluate, today patient had a Lexiscan however it was not completed 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, and had a cardiac catheterization which was essentially normal without significant coronary artery disease, will monitor patient be discharged patient home tomorrow, (2) Hyperlipidemia: Code(s): E78.5 - Hyperlipidemia, unspecified Status: Acute Assessment and Plan: Continue with pravastatin -check liver enzyme (3) HTN (hypertension) with goal to be determined: Code(s): I10 - Essential (primary) hypertension Status: Acute Assessment and Plan: -hold losartan-hydrochlorothiazide and metoprolol (4) DM2 (diabetes mellitus, type 2): Code(s): E11.9 - Type 2 diabetes mellitus without complications Status: Acute Assessment and Plan: -hold metformin lax line-continue glipizide -sliding scale insulin with Accu-Cheks AC and HS and hypoglycemic protocol. -continue with long-acting insulin (5) Chest pain: Code(s): R07.9 - Chest pain, unspecified Status: Acute Assessment and Plan: -the 1st 2 troponins were negative. -continue to trend. -cardiology is already been consulted for the bradycardia (6) History of breast cancer: Code(s): Z85.3 - Personal history of malignant neoplasm of breast Status: Acute Assessment and Plan: -continue with letrozole. Subjective Date/time seen: 11/12/22 14:07 Review of Systems Review of Systems: All systems reviewed & are unremarkable except as noted in HPI and below Exam Narrative: Patient is comfortable, NAD HEENT: eyes are clear and none icteric LUNGS: normal respiratory effort ABD: not distended Lower extremities: no edema SKIN: nonjaundiced Neuro: grossly intact. Objective Data Vital Signs Vital Signs: Vital Signs - 24 hr 11/11/22 16:00 11/11/22 16:00 11/11/22 16:00 Temperature 98.3 F Pulse Rate 73 72 Respiratory Rate 14 Blood Pressure 132/63 Pulse Oximetry 100 99 Oxygen Delivery Room Air 11/11/22 14:15 11/11/22 15:15 11/11/22 16:15 Temperature Pulse Rate 65 66 72 Respiratory Rate 16 12 14 Blood Pressure 119/68 126/63 132/63 Pulse Oximetry 100 98 99 Oxygen Delivery 11/11/22 18:00 11/11/22 20:00 11/11/22 20:00 Temperature 98.5 F Pulse Rate 69 70 72 Respiratory Rate 18 Blood Pressure 129/56 L Pulse Oximetry 98 Oxygen Delivery 11/11/22 20:00 11/11/22 22:00 11/11/22 23:38 Temperature 98.3 F Pulse Rate 72 73 70 Respiratory Rate 18 16 Blood Pressure 135/59 L Pulse Oximetry 98 100 Oxygen Delivery Room Air 11/12/22 00:00 11/12/22 00:00 11/12/22 02:00 Temperature Pulse Rate 68 68 72 Respiratory Rate 16 Blood Pressure Pulse Oximetry 100 Oxygen Delivery Room Air 11/12/22 04:00 11/12/22 04:00 11/12/22 04:00 Temperature 98 F Pulse Rate 63 64 64 Respiratory Rate 16 16 Blood Pressure 113/44 L Pulse Oximetry 100 100 Oxygen Delivery Room Air
--- NOTE | 2022-11-12 14:11 | PM.DS ---
DS: Admitting Diagnosis Discharge Date 11/12/2022 Admitting Diagnosis Chest pain DS: Discharge Diagnosis Discharge Diagnosis (1) Symptomatic bradycardia: Code(s): R00.1 - Bradycardia, unspecified Status: Acute (2) Hyperlipidemia: Code(s): E78.5 - Hyperlipidemia, unspecified Status: Acute (3) HTN (hypertension) with goal to be determined: Code(s): I10 - Essential (primary) hypertension Status: Acute (4) DM2 (diabetes mellitus, type 2): Code(s): E11.9 - Type 2 diabetes mellitus without complications Status: Acute (5) Chest pain: Code(s): R07.9 - Chest pain, unspecified Status: Acute (6) History of breast cancer: Code(s): Z85.3 - Personal history of malignant neoplasm of breast Status: Acute DS: Summary Hospital Course Reason for hospitalization: This is a 52-year-old female patient who stated that she felt horrible this morning.? She has a history of hypertension and breast cancer.? The patient came to the emergency room with some substernal chest pain and palpitations since this morning when she woke up.? The chest pain was constant and but did not radiate.? She also had nausea and vomiting.? She felt like her heart was going to lb out of her chest.? Her EKG was showing supraventricular bradycardia ST deviation and moderate T-wave abnormality.? Consider lateral ischemia.? No previous EKG to compare with.? Chest x-ray was read as pulmonary nodule versus artifact presume bibasilar atelectasis recommend PA and lateral views of the chest if patient is capable.? Patient's heart rate would drop down in the 40s and 50s and sometimes in the 30s.? Patient was awake and talking to me at the time.? She stated that she was feeling so much better.? The patient was given IV fluids, Zofran and atropine in the emergency room.? Once the patient was received in IMU she was complaining of dizziness so I gave her another atropine.? Cardiology has been consulted.? She is on a beta-yuliya.? The patient was initially admitted to inpatient and then changed to observation. Hospital Course: # symptomatic bradycardia: Given 3 doses of atropine in the ER. Beta-yuliya held. Cardiology was consulted. Started on dopamine drip. Echo with ejection fraction 55% grade 1 diastolic dysfunction. Next scan was ordered which was unremarkable but was not completed and hence the left heart catheterization was performed. Event monitor at the time of discharge. Heart rate remained stable a off dopamine drip. TSH was mildly low but T3-T4 was normal # chest pain: Troponins were negative. C with no obstructive coronary disease # hypertension blood pressure medication were held initially on presentation will resume losartan hydrochlorothiazide at discharge however needs to monitor as an outpatient basis off metoprolol # diabetes mellitus type 2 on insulin # history of breast cancer on letrozole Time Spent with Patient Time attestation: Total time spent providing and/or coordinating discharge services: 35 minutes Exam Narrative: Patient is comfortable, NAD HEENT: eyes are clear and none icteric LUNGS: normal respiratory effort ABD: not distended Lower extremities: no edema SKIN: nonjaundiced Neuro: grossly intact. DS: Data Data Completed and Pending Completed studies during hospitalization: Exam Type: ? ? CA echo doppler color flow Study Info Indications ? ? R00.1 - Bradycardia,? unspecified Complete two-dimensional, color flow and Doppler transthoracic echocardiogram is performed. Account #: ? ? [id number] Summary ? 1. Complete two-dimensional, color flow and Doppler transthoracic echocardiogram is performed. ? 2. Mild concentric LVH with normal size and normal systolic function no ischemic wall motion abnormalities. ? 3. Large left atrium. ? 4. Grade 1 diastolic noncompliance. ? 5. Normal aortic valve. Left Ventricle ? Left ventricular chamber dimension is normal.
== END 2022-11-12 15:09 | disposition home or self-care (01) | DRG 287 ==
LOC: ANHED 15:34 → ANHIMU 18:43
PROVIDERS: Emergency Medicine; Family Medicine; General Practice; Internal Medicine; Nurse Practitioner; Admitting Provider Internal Medicine; Emergency Provider Nurse Practitioner Family; PCP Family Medicine; Visit Provider Internal Medicine
PROC: 4A023N7 Measurement of Cardiac Sampling and Pressure, Left Heart, Percutaneous Approach (ICD-10-PCS; CPT 93454; principal; 2022-11-11 10:30)
DX: I49.2 Junctional premature depolarization (principal); I10 Essential (primary) hypertension; E11.9 Type 2 diabetes mellitus without complications; R07.9 Chest pain, unspecified; Z20.822 Contact with and (suspected) exposure to COVID-19; Z85.3 Personal history of malignant neoplasm of breast; Z79.4 Long term (current) use of insulin
CPT/HCPCS: 36415; 36569; 71045; 78452; 80053; 81001; 81025; 82948; 83036; 83605; 83690; 83735; 84439; 84443; 84480; 84484; 85025; 85027; 85055; 85380; 87636; 93005; 93306; 93454; 96361; 96365; 96366; 96372; 96374; 96375; 96376; 99285; A9270; A9502; C1751; C1769; C1887; C1894; G0378; J0461; J1265; J1644; J1650; J1815; J2250; J2270; J2405; J3010; J7030

== ENCOUNTER 2023-10-26 02:41 | Emergency (ER) | payer BC, SELFPAY ==
--- NOTE | ~2023-10-26 | CT_ITS ---
CT of the Abdomen and Pelvis: Indication: Abdominal Technique: 2.5 mm axial scans were obtained through the abdomen and pelvis following intravenous adm inistration of 100 cc of Omnipaque 350. Dose reduction technique was used on this scan by utilizing a utomated exposure control and iterative reconstruction technique. The dose-length product (DLP) was 8 39.24 mGy-cm. Findings: Scans through the lung bases demonstrate mild bibasilar atelectatic changes. The liver, pancreas, adrenals and kidneys are within normal limits. Spleen is enlarged. Cholecystecto my clips are present. No evidence of aortic aneurysm. No lymphadenopathy. No bowel obstruction. Probable mild wall thickening of multiple distal ileal loops, and possibly the sigmoid colon. No abscess or free air. Images through the pelvis were performed. Urinary bladder unremarkable. No adnexal mass seen. No asci marcelo. Impression: Probable mild wall thickening and multiple distal loops, and possibly involving the sigmoid colon. Fi ndings suggest enterocolitis. Splenomegaly, of uncertain etiology. Reviewed, dictated and finalized at location . [employer] Impression: Probable mild wall thickening and multiple distal loops, and possibly involving the sigmoid colon. Findings suggest enterocolitis. Splenomegaly, of uncertain etiology.
[2023-10-26 02:41] VITALS: BP 146/58; PULSE 115; RESP 22; TEMP 36.9; O2SAT 99
--- NOTE | 2023-10-26 03:44 | ED.GENADULT ---
HPI - General Adult General Chief complaint: Abdominal Pain Stated complaint: abd pain, N/V/D Time Seen by Provider: 10/26/23 02:56 History of Present Illness HPI narrative: patient is a 53-year-old female presents to emergency department with chief complaint of abdominal pain. The patient has pending straight having generalized pain throughout her abdomen reports some nausea vomiting and diarrhea. Patient states the pain is aching reports that she has had prior surgeries in the abdomen patient reports she has had prior hernia surgery patient reports no fever does report that her abdomen has been more bloated lately. Related Data Home Medications Medication Instructions Recorded Confirmed glipizide 10 mg tablet 10 mg PO BID 11/08/22 11/08/22 insulin detemir U-100 100 unit/mL 65 unit subcut HS 11/08/22 11/08/22 subcutaneous solution (Levemir U-100 Insulin) letrozole 2.5 mg tablet 2.5 mg PO DAILY 11/08/22 11/08/22 losartan 100 1 tablet PO DAILY 11/08/22 11/08/22 mg-hydrochlorothiazide 25 mg tablet metformin 500 mg tablet,extended 500 mg PO BID 11/08/22 11/08/22 release 24 hr pravastatin 10 mg tablet 10 mg PO HS 11/08/22 11/08/22 Allergies Allergy/AdvReac Type Severity Reaction Status Date / Time No Known Allergies Allergy Verified 11/08/22 14:48 Review of Systems Review of Systems: A 10 system review of systems was completed on the patient and is negative except for what is stated in the HPI. Nursing and ancillary documentation was reviewed. [facility] Past Medical History Medical History DM2 (diabetes mellitus, type 2) History of breast cancer HTN (hypertension) with goal to be determined Hyperlipidemia Surgical History Surgical History H/O section H/O hernia repair H/O lumpectomy Hx laparoscopic cholecystectomy Family History Family History Father Hypertension Mother Diabetes mellitus Hypertension Sibling Diabetes mellitus Hypertension Breast cancer Grandparent Breast cancer Social History Social History Social History: She lives with her and has 2 children. 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 She is a former smoker. She does not use any alcohol marijuana or illicit drugs. 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 Code status full code Smoking status: Former smoker Alcohol intake: current Drinks per week: 1 Substance use: never Lack of Transportation: No Lack of Food: Never True Current Housing: I Have Housing Concerned About Future Housing: No Difficulty Paying Gas/Electric Bills: No Difficulty Paying for Meds: No Currently Unemployed: No Education: Grade School Difficulty w/ Childcare or Family Care: No Spiritual care concerns: No Exam Narrative: GENERAL: Well-appearing, well-nourished, and in no acute distress. HEAD: Normocephalic, atraumatic. EYES: PERRLA and EOMI. ENT: Nares clear, no rhinorrhea or epistaxis. Mucous membranes moist. NECK: Supple. CHEST: Clear to auscultation. No respiratory distress. HEART: Regular rate and rhythm. No murmur heard. Normal peripheral pulses. ABDOMEN: Soft, Diffusely tender, distended, normal active bowel sounds. EXTREMITIES: Normal range of motion. No edema. SKIN: Warm, dry, no rash. NEURO: No focal deficits. Alert and oriented x3. PSYCH: Normal mood and affect. Course Vital Signs Vital signs: Vital Signs Temperature 36.9 C 10/26/23 02:41 Pulse Rate 115 H 10/26/23 02:41 Respiratory Rate 22 H 10/26/23 02:41 Blood Pressure 146/58 H 10/26/23 02:41 Pulse Oximetry 99 10/26/23 02:41 Oxygen Delivery Room Air 10/26/23 02:41 Temperature 36.9 C 10/26/23 02:41 Pulse Rate 106 H 10/26/23 06:12 Res
[2023-10-26] MEDS: SODIUM CHLORIDE 0.9% IV 1,000 ML 999 ML IV CONT ×3 (03:54→04:37)
[2023-10-26] MEDS: ONDANSETRON INJ 4 MG/2 ML VIAL IV PUSH (03:54)
[2023-10-26] MEDS: MORPHINE SULFATE (*CRX) 4 MG/ML INJ IV PUSH (03:54)
[2023-10-26 04:04] LABS: Basophils Absolute Auto 0.1 K/mm3 (0.0-0.1); Basophils Percent Auto 0.3 % (0.2-1.2); Eosinophils Absolute Auto 0.1 K/mm3 (0-0.3); Eosinophils Percent Auto 0.4 % (0-4.4); Hematocrit 39.8 % (37.0-47.0); Hemoglobin 13.7 g/dL (12.0-15.0); Immature Granulocyte Absolute 0.05 K/mm3 (0.00-0.031); Immature Granulocyte Percent A 0.3 % (0-0.5); Lymphocytes Absolute Auto 0.86 K/mm3 (0.9-3.2); Lymphocytes Percent Auto 5.3 % (18.3-44.2); Mean Corpuscular HGB Conc 34.4 g/dl (32-36); Mean Corpuscular Hemoglobin 28.9 pg (26-34); Mean Platelet Volume 10.1 fl (7.4-10.4); Monocytes Absolute Auto 0.6 K/mm3 (0.1-0.6); Monocytes Percent Auto 3.7 % (2.6-8.5); Neutrophils Absolute Auto 14.5 K/mm3 (1.3-6.7); Platelet Count Result 209 k/mm3 (150-375); Red Blood Count 4.74 M/mm3 (4.2-5.4); Red Cell Distribution Width 13.2 % (11.5-14.5); White Blood Count 16.1 K/mm3 (4.5-10.0)
[2023-10-26 04:20] LABS: Appearance Urine Cloudy (Clear); Bacteria Urine None Seen /hpf; Bilirubin Urine 2+ (Negative); Blood Urine Negative (Negative); Color Urine Dark Yellow (Yellow); Glucose Urine UA Trace mg/dL (Negative); Ketones Urine 1+ mg/dL (Negative); Leukocyte Esterase Ur Trace LEU/UL (Negative); Need Manual Microscopic Reviewed; Nitrate Urine Negative (Negative); Protein Urine 1+ mg/dL (Negative); RBC Urine 0-2 /hpf (0-2); Specific Grav Ur 1.034 (1.001-1.035); Squamous Epithelial Cell Urine Occasional /hpf (Few); WBC Urine 0-5 /hpf
[2023-10-26 04:26] LABS: Lactic Acid Reflex 4.2 mmol/L (0.7-2.0)
[2023-10-26 04:33] LABS: Add Urine Microscopic? YES
[2023-10-26 04:34] LABS: Alanine Aminotransferase 62 U/L (6-35); Albumin Level 4.9 g/dL (3.5-5.1); Alkaline Phosphatase 162 U/L (38-126); Anion Gap 17 mmol/L (8-16); Aspartate Amino Transferase 44 U/L (14-36); Bilirubin,Total 1.3 mg/dL (0.2-1.3); Blood Urea Nitrogen 16 mg/dL (7-17); Calcium 10.1 mg/dL (8.4-10.2); Carbon Dioxide 19 mmol/L (22-30); Chloride 102 mmol/L (98-107); Estimated CRCL calculation 142 ml/min; Estimated Glomerular Filt Rate > 60; Glucose 290 mg/dL (65-110); Lipase 59 U/L (23-300); Potassium 3.2 mmol/L (3.4-5.0); Sodium 138 mmol/L (137-145)
[2023-10-26 04:37] VITALS: BP 149/65; PULSE 109; RESP 19; O2SAT 96
[2023-10-26 06:12] VITALS: BP 117/59; PULSE 106; RESP 18; O2SAT 95
[2023-10-26 06:47] LABS: Lactic Acid Reflex 2.5 mmol/L (0.7-2.0)
[2023-10-26 07:05] VITALS: BP 121/58; PULSE 102; RESP 20; O2SAT 100
[2023-10-26 07:09] LABS: Reflex Lactic Acid Yes or No Add Lactic
== END 2023-10-26 07:05 | disposition home or self-care (01) ==
PROVIDERS: Emergency Provider Emergency Medicine; PCP Family Medicine
DX: K52.9 Noninfective gastroenteritis and colitis, unspecified (principal); E11.9 Type 2 diabetes mellitus without complications; I10 Essential (primary) hypertension; E78.5 Hyperlipidemia, unspecified; Z85.3 Personal history of malignant neoplasm of breast; Z87.891 Personal history of nicotine dependence; Z90.49 Acquired absence of other specified parts of digestive tract; Z79.4 Long term (current) use of insulin; Z79.84 Long term (current) use of oral hypoglycemic drugs
CPT/HCPCS: 36415; 74177; 80053; 81001; 83605; 83690; 85025; 87040; 96361; 96374; 96375; 99284; J2270; J2405; J7030; Q9967

== ENCOUNTER 2024-04-01 14:09 | Outpatient (CLI) | payer BC, SELFPAY ==
--- NOTE | ~2024-04-01 | CT_ITS ---
EXAMINATION: CT abdomen wo con DATE: 04/01/2024 14:30 INDICATION: Periumbilical abdominal pain. TECHNIQUE: Computed tomography (CT) of the abdomen was performed without intravenous contrast. Automa mylene exposure control and iterative reconstruction technique were employed. The dose-length product wa s 845.89 mGy-cm. COMPARISON: CT abdomen and pelvis 10/26/2023 FINDINGS: The visualized portions of the lung bases demonstrate mild atelectasis. No pleural effusion . The heart size is normal. No pericardial effusion. There is diffuse hepatic steatosis. There are ch anges of cholecystectomy. There is mild splenomegaly. There are changes of cholecystectomy. The pancr eas, adrenal glands, and kidneys are normal. There is subcutaneous fat stranding in the supraumbilica l region. There are no pathologically enlarged lymph nodes. There is no free intraperitoneal fluid. T here is mild thoracic and lumbar spondylosis. IMPRESSION: 1. Subcutaneous fat stranding in the supraumbilical region again seen, consistent with inflammation v ersus scarring. 2. Mild splenomegaly again seen. 3. Diffuse hepatic steatosis. Reviewed, dictated and finalized at location E. IMPRESSION: 1. Subcutaneous fat stranding in the supraumbilical region again seen, consiste nt with inflammation versus scarring. 2. Mild splenomegaly again seen. 3. Diffuse hepatic steatosis.
== END 2024-04-01 14:10 ==
PROVIDERS: PCP Family Medicine; Visit Provider Surgery
DX: R10.33 Periumbilical pain (principal); Z98.890 Other specified postprocedural states; Z87.19 Personal history of other diseases of the digestive system; K76.0 Fatty (change of) liver, not elsewhere classified
CPT/HCPCS: 74150